=== PATIENT | female | born 1990 | race Caucasian/White ===

== ENCOUNTER → 2016-06-29 | Outpatient (CLI) | payer BC ==
[2016-06-29 10:42] LABS: COMPLETE YES; EOS % 0.6 %; HEMATOCRIT 40.5 % (37-47); IG% 0.1 %; LYMPH % 23.6 %; LYMPH ABS # 1.67 K/uL (1.2-3.4); MEAN CELL VOLUME 92.5 fL (80-100); MEAN CORPUSCULAR HEMOGLOBIN 32.6 pg (25-34); MEAN CORPUSCULAR HGB CONC 35.3 g/dl (32-36); MONO % 6.1 %; NEUT % 69.6 %; PLATELET COUNT 215 K/uL (130-400); RED BLOOD COUNT 4.38 M/uL (4.2-5.4); WHITE BLOOD COUNT 7.09 K/uL (4.8-10.8)
[2016-06-29 10:48] LABS: URINE APPEARANCE CLEAR (CLEAR); URINE BILIRUBIN NEG (NEG); URINE COLOR YELLOW; URINE NITRITE NEG (NEG); URINE PH 7.5 (4.5-7.5); UROBILINOGEN NEG (NEG)
[2016-06-29 10:52] LABS: MANUAL MICROSCOPIC REQUIRED? NO; REVIEW REQ? NO
[2016-07-01 01:46] LABS: CHLAMYDIA TRACH RNA*** NOT DETECTED (NOT DETECTED); GC (NEIS GONORRHOEAE)RNA** NOT DETECTED (NOT DETECTED)
== END | disposition home or self-care (01) ==
LOC: C.LAB1850 09:14
PROVIDERS: ATTEND Obstetrics & Gynecology
DX: Z34.00 Encounter for supervision of normal first pregnancy, unspecified trimester (principal)

== ENCOUNTER → 2016-08-31 | Outpatient (CLI) | payer BC ==
[~2016-08-31] MED LIST: PRENTAB26 PO
[2016-08-31 17:43] LABS: GTGD 50 Grams
[2016-09-04 16:12] LABS: AFP CONCENTRATION 42.1 NG/ML; AFP MULTIPLE OF MEDIAN 1.02; AFPTS GESTATIONAL AGE 17.6 WEEKS; AFPTS INSULIN DEP DIABETIC? NO; AFPTS MATERNAL WT 145 LBS; ALPHA-FETOPROTEIN RACE CAUCASIAN=W; HISTORY OF NTD NO; REPEAT SAMPLE? NO
== END | disposition home or self-care (01) ==
LOC: C.LAB1850 15:25
PROVIDERS: ATTEND Obstetrics & Gynecology
DX: Z34.03 Encounter for supervision of normal first pregnancy, third trimester (principal)

== ENCOUNTER → 2016-11-16 | Outpatient (CLI) | payer BC ==
[2016-11-16 17:45] LABS: HEMATOCRIT 36.2 % (37-47)
[2016-11-16 18:11] LABS: URINE APPEARANCE CLEAR (CLEAR); URINE BILIRUBIN NEG (NEG); URINE COLOR YELLOW; URINE EPITHELIAL CELL AUTO 20-30 /lpf (0-5); URINE NITRITE NEG (NEG); URINE SPECIFIC GRAVITY 1.033 (1.000-1.030); UROBILINOGEN NEG (NEG)
[2016-11-16 18:12] LABS: MANUAL MICROSCOPIC REQUIRED? NO; REVIEW REQ? NO
[2016-11-16 18:18] LABS: GTGD 50 Grams
== END | disposition home or self-care (01) ==
LOC: C.LAB1850 16:27
PROVIDERS: ATTEND Obstetrics & Gynecology
DX: Z34.03 Encounter for supervision of normal first pregnancy, third trimester (principal)

== ENCOUNTER → 2016-11-20 | Outpatient (CLI) | payer BC | END | disposition home or self-care (01) | LOC: C.LAB1850 07:36 | PROVIDERS: ATTEND Obstetrics & Gynecology | DX: O99.810 Abnormal glucose complicating pregnancy (principal) ==

== ENCOUNTER → 2017-01-09 | Outpatient (CLI) | payer BC | END | disposition home or self-care (01) | LOC: C.LABSPEC 17:51 | PROVIDERS: ATTEND Obstetrics & Gynecology | DX: Z34.03 Encounter for supervision of normal first pregnancy, third trimester (principal) ==

== ENCOUNTER 2019-03-20 13:11 | Inpatient (IN) ==
[2019-03-20] MEDS ORDERED: LACTATED RINGER'S 1,000 ML IV PRN (13:35)
[2019-03-20] MEDS ORDERED: OXYTOCIN 30 UNITS/500 ML BAG IV PRN ×2 (13:35→16:19)
--- NOTE | 2019-03-20 13:38 | History & Physical Report ---
Date of Service March 20, 2019 40 weeks second baby admitted with labor she was 5 cm in the office had her membranes stripped and at this time she is now in active labor at 7 cm 100% effaced her has been uncomplicated with the exception of abnormal Pap smears which she will follow-up for after work she is group B strep neck Assessment & Plan (1) Normal labor and delivery: Admission patient does not wish an epidural at this time group B strep History of Present Illness Primary Care Provider: NO PCP Allergies Allergy/AdvReac Type Severity Reaction Status Date / Time Penicillins Allergy Unknown RASH Verified 03/20/19 10:21 Home Medications Home Medications Medication Instructions Recorded Confirmed Type prenat.vits,glo,xma-efrr-qjikd 1 tab PO DAILY 10/29/18 03/20/19 History Patient History Medical History (Updated 03/20/19 @ 13:37 by Taina Prakash MD, FACOG) History of acute sinusitis History of endometriosis History of nasal obstruction History of varicella vaccination Surgical History (Updated 11/02/18 @ 13:40 by Yari Chaparro) S/P laparoscopic surgery excision uterine surface endometriotic tissue S/P LASIK surgery of both eyes S/P wisdom tooth extraction Family History (Updated 11/02/18 @ 13:41 by Yari Chaparro) Sister Diabetes Grandfather (Maternal) Diabetes Hypertension Father Hypertension Social History (Updated 11/02/18 @ 13:41 by Yari Chaparro) marital status: Smoking Status: Never smoker Physical Exam Respiratory: normal respiratory effort, lungs clear to auscultation Cardiovascular: RRR, no murmur, no edema Genitourinary: Manual OB Exam: + cervical dilation 7 cm, + cervical effacement 100% and + station 0 OB Exam Monitor Tracing: + external FHT monitor used Results & Data Vital Signs (Past 12 Hours) Vital Signs Temp Pulse Resp BP 03/20/19 13:19 65 132/62 03/20/19 13:16 97.9 F 18
[2019-03-20 13:53] LABS: Hemoglobin 13.7 g/dL (12.0-16.0); Mean Corpuscular Hemoglobin 33.1 pg (25-34); Mean Corpuscular Volume 96.6 fL (80-100); Mean Platelet Volume 11.6 fL (7.4-10.4); Platelet Count 150 K/uL (130-400); RDW Coefficient of Variation 14.7 % (11.5-14.5); RDW Standard Deviation 52.1 fL (36.4-46.3); Red Blood Count 4.14 M/uL (4.2-5.4); White Blood Count 8.79 K/uL (4.8-10.8)
[2019-03-20 13:54] LABS: Mean Corpuscular Hgb Conc 34.3 g/dL (32-36)
--- NOTE | 2019-03-20 15:57 | Delivery Summary ---
Vaginal Delivery Summary Date of Service March 20, 2019 Spontaneous vaginal delivery patient presented to 9 cm AROM was performed she t hen delivered over the next 4 contractions. Delivering her baby in occiput anterior position mouth and the nares were suctioned and no nuchal cord with no excess force. Vigorous baby. Second-degree tear repaired with 3-0 Vicryl estimated blood loss 300 mL placenta was removed with gentle traction rectal exam negative for defect sponge and instrument counts correct
[2019-03-20] MEDS ORDERED: IBUPROFEN 600 MG TAB PO ONE (16:18)
[2019-03-20] MEDS ORDERED: BENZOCAINE 20% AER SPR 82.5 GM CAN EXT PRN (16:19)
[2019-03-20] MEDS ORDERED: SUPERCREAM 0.870% 15 GM JAR EXT PRN (16:19)
[2019-03-20] MEDS ORDERED: OXYCODONE/ACETAMINOPHEN 5mg/325mg TAB PO PRN (16:19)
[2019-03-20] MEDS ORDERED: DIPHTHERIA/TETANUS/PERTUSSIS 0.5 ML SYR/VIAL IM ONE (16:19)
[2019-03-20] MEDS ORDERED: ACETAMINOPHEN 325 MG TAB PO PRN (16:19)
[2019-03-20] MEDS ORDERED: bisacodyL 10 MG SUPP PR PRN (16:19)
[2019-03-20] MEDS ORDERED: HYDROCORTISONE ACETATE 25 MG SUPP PR PRN (16:19)
[2019-03-20] MEDS: DOCUSATE SODIUM 100 MG CAP PO SCH (20:10)
[2019-03-20] MEDS: IBUPROFEN 600 MG TAB PO PRN (23:17)
[2019-03-21] MEDS: IBUPROFEN 600 MG TAB PO PRN ×3 (03:39→19:23)
--- NOTE | 2019-03-21 06:43 | Obstetrical Progress Note ---
Date of Service March 21, 2019 Assessment & Plan (1) Encounter for care and examination after delivery: - recovering well after stripping of membranes in office yesterday and yesterday afternoon - eating and drinking appropriately - breast feeding - progressing appropriately - continue supportive care Supervising Physician Co-Signing Physician Notes Resident Physician Supervision Note: I interviewed and examined the patient. Discussed with [Chu] and agree with findings and plan as documented in the note. Any exceptions or clarifications are listed here: [None] Documented By: Taina Prakash MD, FACOG Subjective Feeling great this morning. No acute complaints. Review of Systems Constitutional: + fatigue; no fever and no chills Respiratory: no cough and no dyspnea Cardiovascular: no chest pain, no syncope, no edema and no calf pain Gastrointestinal: + cramping; no abdominal pain, no nausea, no vomiting, no constipation and no diarrhea/loose stools Genitourinary: no dysuria and no difficulty urinating Neurologic: no headache(s) Physical Exam Constitutional: well developed and well nourished Respiratory: normal respiratory effort; no respiratory distress, no labored b reathing and no cough Auscultation: no crackles, no rales, no rhonchi and no wheezes Cardiovascular: Rate/Rhythm: regular rate and regular rhythm Heart Sounds: no gallop, no murmur and no cardiac rub Extremities: no pedal edema Gastrointestinal (Abdomen): Inspection/Auscultation: + abdomen distended and normal bowel sounds Percussion/Palpation: abdomen soft; no guarding Musculoskeletal: no tenderness to palpation of calves bilaterally Genitourinary: Uterus small and firm, palpable in midline one finger below level of umbilicus,no tenderness to palpation. Results & Data Vital Signs (Past 12 Hours) Vital Signs Temp Pulse Resp BP Pulse Ox 03/21/19 03:40 36.4 C L 72 16 108/61 99 03/20/19 23:20 36.6 C 74 18 118/73 97 03/20/19 20:10 36.9 C 79 18 126/71 98 03/20/19 Range/Units 13:41 WBC 8.79 (4.8-10.8) K/uL RBC 4.14 L (4.2-5.4) M/uL Hgb 13.7 (12.0-16.0) g/dL Hct 40.0 (37-47) % MCV 96.6 (80-100) fL MCH 33.1 (25-34) pg MCHC 34.3 (32-36) g/dL RDW Std Deviation 52.1 H (36.4-46.3) fL RDW Coeff of Fallon 14.7 H (11.5-14.5) % Plt Count 150 (130-400) K/uL MPV 11.6 H (7.4-10.4) fL PG Care Time/CCT Total # of Minutes Spent Total Time Spent with Patient: Total time spent is greater than 50% in coordin ation of care (as documented) at patient's floor/unit and/or counseling patient: Resident Activity Tracking Resident Involvement: Resident Care Provided Care Provided: OB Delivery
[2019-03-21 07:08] LABS: Hematocrit (blood only) 34.9 % (37-47); Hemoglobin 11.8 g/dL (12.0-16.0); Mean Corpuscular Hemoglobin 32.7 pg (25-34); Mean Corpuscular Hgb Conc 33.8 g/dL (32-36); Mean Corpuscular Volume 96.7 fL (80-100); Mean Platelet Volume 11.8 fL (7.4-10.4); Platelet Count 141 K/uL (130-400); RDW Coefficient of Variation 14.7 % (11.5-14.5); RDW Standard Deviation 51.8 fL (36.4-46.3); Red Blood Count 3.61 M/uL (4.2-5.4); White Blood Count 12.72 K/uL (4.8-10.8)
[2019-03-21] MEDS: DOCUSATE SODIUM 100 MG CAP PO SCH ×2 (08:41→21:39)
[2019-03-21] MEDS: PRENATAL VITAMIN 1 TAB PO SCH (08:41)
[2019-03-21] MEDS ORDERED: NON-FORMULARY MEDICATION (Prenat.Vits,Cal,Min-Iron-Folic 1 TAB) PO SCH (09:00)
[2019-03-21] MEDS ORDERED: bisacodyL 5 MG TABEC PO SCH (20:00)
[2019-03-22] MEDS: IBUPROFEN 600 MG TAB PO PRN ×2 (02:15→08:25)
[2019-03-22 06:58] LABS: Hematocrit (blood only) 34.2 % (37-47); Hemoglobin 11.3 g/dL (12.0-16.0)
--- NOTE | 2019-03-22 07:07 | Obstetrical Progress Note ---
Date of Service March 22, 2019 Assessment & Plan (1) Encounter for care and examination after delivery: s/p on L&D after stripping of membranes in the office - recovering well - eating and drinking appropriately - breast feeding - progressing appropriately toward discharge - continue supportive care Supervising Physician Co-Signing Physician Notes Resident Physician Supervision Note: I was present with Dr. Sage during the history and exam. I discussed the case with the resident and agree with the findings and plan as documented in the note. Any exceptions or clarifications are listed here: PPD#1 doing well, DC home today. Instructions reviewed. Documented By: Lorna Rios, DO Subjective No complaints this AM, doing well and eager to go home. Review of Systems Constitutional: + fatigue; no fever and no chills Respiratory: no cough and no dyspnea Cardiovascular: no chest pain, no syncope, no edema and no calf pain Gastrointestinal: no abdominal pain, no nausea, no vomiting, no cramping, no constipation and no diarrhea/loose stools Genitourinary: no dysuria and no difficulty urinating Neurologic: no headache(s) Physical Exam Constitutional: well developed and well nourished Respiratory: normal respiratory effort; no respiratory distress, no labored breathing and no cough Auscultation: no crackles, no rales, no rhonchi and no wheezes Cardiovascular: Rate/Rhythm: regular rate and regular rhythm Heart Sounds: no gallop, no murmur and no cardiac rub Extremities: no pedal edema Gastrointestinal (Abdomen): Inspection/Auscultation: + abdomen distended and normal bowel sounds Percussion/Palpation: abdomen soft; no guarding Results & Data Vital Signs (Past 12 Hours) Vital Signs Temp Pulse Resp BP 03/22/19 02:30 36.6 C 69 18 117/75 03/22/19 03/21/19 Range/Units 06:15 06:29 WBC 12.72 H (4.8-10.8) K/uL RBC 3.61 L (4.2-5.4) M/uL Hgb 11.3 L 11.8 L (12.0-16.0) g/dL Hct 34.2 L 34.9 L (37-47) % MCV 96.7 (80-100) fL MCH 32.7 (25-34) pg MCHC 33.8 (32-36) g/dL RDW Std Deviation 51.8 H (36.4-46.3) fL RDW Coeff of Fallon 14.7 H (11.5-14.5) % Plt Count 141 (130-400) K/uL MPV 11.8 H (7.4-10.4) fL PG Care Time/CCT Total # of Minutes Spent Total Time Spent with Patient: Total time spent is greater than 50% in coordination of care (as documented) at patient's floor/unit and/or counseling patient: Resident Activity Tracking Resident Involvement: Resident Care Provided Care Provided: OB Delivery
[2019-03-22] MEDS: DOCUSATE SODIUM 100 MG CAP PO SCH (08:23)
[2019-03-22] MEDS: PRENATAL VITAMIN 1 TAB PO SCH (08:23)
== END 2019-03-22 11:45 | disposition home or self-care (01) | DRG 807 ==
LOC: OPB 13:11 → 4S1 13:16 → 4S2 20:12

== ENCOUNTER 2021-09-13 18:17 | Inpatient (IN) ==
--- NOTE | 2021-09-13 19:42 | History & Physical Report ---
Date of Service September 13, 2021 Assessment & Plan (1) Normal labor: Plan: admit for probable labor. Patient notes that she has had rapid deliveries and concerned about going home. given g3, don't feel comfortable doing this. Would be amendable to arom if needed. Desires unmedicated delivery. last delivery was 10# and pushed fo 10 minutes. History of Present Illness Chief Complaint: contractions Primary Care Provider: Sudha Ruiz MD Patient is a 31yowf with iup at 40 0/7 who was seen in the office today for a routine visit. Was 2/100/-2 and had membranes stripped. Started with increased contractions this evening and painful. no lof/vb. +fm. uncomplicated. and Delivery Plans History of Leep 2018- PLAN- PAP at [facility] IOL 09/23/21 COVID test would be 09/21 OB Labs: Blood Type A Positive 08/15/18 Antibody Screen NEGATIVE 08/15/18 Hemoglobin 12.7 g/dL (12.0-16.0) 06/29/21 Hematocrit 38.0 % (37-47) 06/29/21 Mean Corpuscular Volume 97.8 fL (80.0-100.0) 02/01/21 Platelet Count 220 Thousand/uL (140-400) 02/01/21 Rubella IgG Antibody 1.36 Index 02/01/21 Rapid Plasma Reagin NON-REACTIVE (NON-REACTIVE) 02/01/21 Hepatitis B Surface Antigen Neg (Neg) 08/15/18 HIV (1&2) Ab and P24 Ag, 4th Gener NON-REACTIVE (NON-REACTIVE) 02/01/21 Glucose 1 Hour 50 gm Load 130 mg/dl (70-130) 06/29/21 OB Optional Labs: Chlamydia trachomatis RNA NOT DETECTED (NOT DETECTED) 02/01/21 Neisseria gonorrhoeae RNA NOT DETECTED (NOT DETECTED) 02/01/21 Thyroid Stimulating Hormone (TSH) 2.279 uIu/ml (0.300-4.500) 07/22/21 Labs Reviewed: low risk panorama--akh gbs negative. Allergies Allergy/AdvReac Type Severity Reaction Status Date / Time Penicillins Allergy Unknown RASH Verified 09/13/21 09:21 Home Medications Medication Instructions Recorded Confirmed Type prenat.vits,glo,qfw-eqak-qatoo 1 tab PO DAILY 09/13/21 09/13/21 History Patient History Medical History Anemia Health care maintenance HGSIL (high grade squamous intraepithelial lesion) on Pap smear of cervix (2018) History of acute sinusitis History of endometriosis History of nasal obstruction History of varicella vaccination Pelvic pressure in female Skin tag Surgical History H/O LEEP (06/2019) Cin2 neg margins S/P laparoscopic surgery excision uterine surface endometriotic tissue S/P LASIK surgery of both eyes S/P wisdom tooth extraction Family History Sister Diabetes Grandfather (Maternal) Diabetes Hypertension Father Hypertension Aunt Colorectal cancer Denies family history of Ovarian cancer Breast cancer Uterine cancer Social History Smoking Status: Never smoker Second Hand Exposure: No; Hx Alcohol Use: No Hx Substance Use: No Preferred Language: Syriac Communication Ability: Effective Visual Impairment: No Limitations Hearing Ability: Normal Clinical Abstractor Required: No Beliefs That Will Affect Care: None marital status: marital status details: Issa Plasencia (39) [phone] Current Living Situation: Family Current Living Situation Comment: Lives with and 2 children current occupational status: unemployed current occupation: homemaker Other Information That Helps Us Care for You: No Feels Safe at Home: Yes Safety Concerns: Feels Safe At This Time Gender Identity: Female Assistive Devices: None OB History Past Pregnancies Del. Date GA wks Lbr Lgth wt Sex Type del Anes Place Del Prov ? Comment 01/28/17 39 7-15 F Epidural [facility] Dr [place] 03/20/19 40 10lb 0.2oz M No ne [facility] Olinda No [facility] History hx of leep and following up Physical Exam Constitutional: WD/WN, vitals as above Gastrointestinal (Abdomen): soft, gfavid, nt Psychiatric: A+Ox3, euthymic affect Genitourinary: cx--3/100/-1 per nursing toco--q 2-4 min efm--150s with mod variaiblity, accels to 170s, no decels Results & Data ([facility]) Vital Signs (Past 12 Hours) Vital Signs Temp Pulse Resp BP 09/13/21 19:10 36.7 C 20 09/13/21 19:07 36.7 C 85 20 125/63 09/13/21 18:22 36.8 C 75 20 137/69 Coding Level of Care Code None Diagnoses Normal labor O80; Z37.9
[2021-09-13 20:01] LABS: Hematocrit (blood only) 39.5 % (37-47); Hemoglobin 13.4 g/dL (12.0-16.0); Mean Corpuscular Hgb Conc 33.9 g/dL (32-36); Mean Corpuscular Volume 97.3 fL (80-100); Mean Platelet Volume 11.2 fL (7.4-10.4); Platelet Count 144 K/uL (130-400); RDW Standard Deviation 49.5 fL (36.4-46.3); Red Blood Count 4.06 M/uL (4.2-5.4); White Blood Count 11.91 K/uL (4.8-10.8)
--- NOTE | 2021-09-13 20:43 | Labor Progress Brief Note ---
Date of Service September 13, 2021 Subjective breathing through contractions Assessment & Plan (1) Normal labor: Plan: agrees to arom. fetus category one. anticipate . Physical Exam Physical Exam: cx--/-1 arom--clear toco--q2-3min efm--150s with mod variability, accels present, no decels. Results & Data ([facility]) Vital Signs (Past 12 Hours) Vital Signs Temp Pulse Resp BP Pulse Ox 09/13/21 20:37 93 H 99 09/13/21 20:32 84 98 09/13/21 20:27 108 H 98 09/13/21 20:22 94 H 98 09/13/21 20:17 97 H 98 09/13/21 20:12 91 H 100 09/13/21 19:35 18 09/13/21 19:10 36.7 C 20 09/13/21 19:07 36.7 C 85 20 125/63 09/13/21 18:22 36.8 C 75 20 137/69 Coding Level of Care Code None Diagnoses Normal labor O80; Z37.9
[2021-09-13] MEDS: LACTATED RINGER'S 1,000 ML IV PRN ×2 (21:22→22:27)
--- NOTE | 2021-09-13 21:22 | Labor Progress Brief Note ---
Date of Service September 13, 2021 Subjective considering pain management Assessment & Plan (1) Normal labor: Plan: starting to change. can do stadol but may not last long if at all. if going to do epidural need to do it now or will likely miss opportunity. Will go with epidural. Admission and Anticipated Discharge Date Admission Date: September 13, 2021 Physical Exam Physical Exam: cx--5/100/-1 toco--q2-3min efm--150s wtih mod variaibly, small accels, no decles, picking up maternal pulse at times Results & Data ([facility]) Vital Signs (Past 12 Hours) Vital Signs Temp Pulse Resp BP Pulse Ox 09/13/21 21:17 93 H 98 09/13/21 21:12 55 L 98 09/13/21 21:07 77 98 09/13/21 21:02 56 L 98 09/13/21 21:00 20 09/13/21 20:57 75 98 09/13/21 20:52 91 H 99 09/13/21 20:47 93 H 97 09/13/21 20:42 82 99 09/13/21 20:40 36.7 C 09/13/21 20:37 93 H 99 09/13/21 20:32 84 98 09/13/21 20:27 108 H 98 09/13/21 20:22 94 H 98 09/13/21 20:17 97 H 98 09/13/21 20:12 91 H 100 09/13/21 19:35 18 09/13/21 19:10 36.7 C 20 09/13/21 19:07 36.7 C 85 20 125/63 09/13/21 18:22 36.8 C 75 20 137/69 Coding Level of Care Code None Diagnoses Normal labor O80; Z37.9
[2021-09-13] MEDS ORDERED: SODIUM CHLORIDE 0.9% INJ 10 ML VIAL ONE (21:24)
[2021-09-13] MEDS ORDERED: ePHEDrine sulfate 50 MG/ML AMP ONE (21:24)
[2021-09-13] MEDS ORDERED: fentaNYL citrate 100 MCG/2 ML VIAL ONE (21:24)
[2021-09-13] MEDS ORDERED: BUPIVACAINE 0.25% 30 ML VIAL ONE (21:24)
--- NOTE | 2021-09-13 21:24 | Anesthesiology Consultation ---
Date of Service September 13, 2021 Assessment & Plan (1) Encounter for pre-operative examination: Chart Review Chart Review: Acceptable Risk for Labor Epidural History Height/Weight Height: 5 ft 11 in Weight: 92.986 kg Allergies Allergy/AdvReac Type Severity Reaction Status Date / Time Penicillins Allergy Unknown RASH Verified 09/13/21 09:21 Medications Home Medications Medication Instructions Recorded Confirmed Last Taken prenat.vits,glo,ycx-rxnw-bmrdx 1 tab PO DAILY 09/13/21 09/13/21 09/13/21 08:00 Active Medications Generic Name Dose Route Start Last Admin Trade Name Freq PRN Reason Stop Dose Admin Lactated Ringer's 1,000 mls @ 125 mls/hr 09/13/21 19:22 09/13/21 21:22 Lr IV 09/15/21 19:21 999 mls/hr .Q8H PRN Administration L&D Protocol Protocol Past Medical History Medical History Anemia Health care maintenance HGSIL (high grade squamous intraepithelial lesion) on Pap smear of cervix (2018) History of acute sinusitis History of endometriosis History of nasal obstruction History of varicella vaccination Pelvic pressure in female Skin tag Spontaneous vaginal delivery 01/28/17 [facility] 03/20/19 [facility] Past Family History Family History Sister Diabetes Grandfather (Maternal) Diabetes Hypertension Father Hypertension Aunt Colorectal cancer Denies family history of Ovarian cancer Breast cancer Uterine cancer Past Surgical History Surgical History H/O LEEP (06/2019) Cin2 neg margins S/P laparoscopic surgery excision uterine surface endometriotic tissue S/P LASIK surgery of both eyes S/P wisdom tooth extraction Social History Smoking Status: Never smoker Hx Alcohol Use: No Hx Substance Use: No substance use type: does not use Physical Exam Vital Signs Last Vital Signs Temp 36.7 C 09/13/21 20:40 Pulse 68 09/13/21 21:22 Resp 20 09/13/21 21:00 BP 125/63 09/13/21 19:07 Pulse Ox 98 09/13/21 21:17 Testing Laboratory Results 09/13/21 19:41
[2021-09-13] MEDS ORDERED: fentaNYL 2MCG/ML ROPIVACAINE 1.25MG/ML 100 ML BAG EPI ONE (21:25)
[2021-09-13] MEDS ORDERED: ePHEDrine sulfate 50 MG/ML AMP IV PRN (22:00)
[2021-09-13] MEDS ORDERED: ONDANSETRON INJ 2 MG/ML 2 ML VIAL IV PRN (22:00)
[2021-09-13] MEDS ORDERED: NALOXONE HCL 0.4 MG/1 ML VIAL/CARP IV PRN (22:00)
[2021-09-13] MEDS ORDERED: NALOXONE HCL 1 MG in SODIUM CHLORIDE 0.9% 1000ML 1,000 ML IV PRN (22:00)
[2021-09-13] MEDS ORDERED: fentaNYL 2MCG/ML ROPIVACAINE 1.25MG/ML 100 ML BAG EPI PRN (22:00)
[2021-09-13] MEDS: OXYTOCIN 30 UNITS/500 ML BAG IV PRN (23:46)
[2021-09-13] MEDS ORDERED: HYDROCORTISONE ACETATE 25 MG SUPP PR PRN (23:57)
[2021-09-13] MEDS ORDERED: ACETAMINOPHEN 325 MG TAB PO PRN (23:57)
[2021-09-13] MEDS ORDERED: DIPHTHERIA/TETANUS/PERTUSSIS 0.5 ML SYR/VIAL IM ONE (23:57)
[2021-09-13] MEDS ORDERED: oxyCODONE/ACETAMINOPHEN 5mg/325mg TAB PO PRN (23:57)
[2021-09-13] MEDS ORDERED: METHYLERGONOVINE MALEATE 0.2 MG/ML AMP IM ONE (23:57)
[2021-09-13] MEDS ORDERED: BENZOCAINE 20% AER SPR 82.5 GM CAN EXT PRN (23:57)
[2021-09-13] MEDS ORDERED: OXYTOCIN 30 UNITS/500 ML BAG IV PRN (23:57)
--- NOTE | 2021-09-14 00:03 | Delivery Summary ---
Vaginal Delivery Summary Date of Service September 14, 2021 Vaginal Delivery Summary and 2nd Degree LAC Pre-operative Diagnosis: at 40 weeks active labor Post-operative Diagnosis: same Procedure: arom epidural second degree laceration and repair EBL: 400cc Anesthesia: epidural Procedure: The patient presented with active labor. She was slow to progress so arom done for clear fluid. She then underwent epidural. She progressed to c/c/+4. The patient pushed for one contractions to deliver a viable male in doa position. The infant was then delivered without difficulty. The baby was vigorous. The nose and mouth were bulb suctioned and the was placed in the maternal abdomen for drying and attention. Cord was clamped and cut at one minute of life. Cord blood and segment obtained. Placenta delivered spontaneous, intact with a three vessel cord. Cervix/sulci/rectum were intact. A second degree perineal laceration was repaired in the normal standard fashion. Hemostasis obtained with dilute pitocin and fundal massage. Apgars were 8/9. Mother and baby doing well at the end of the delivery. [facility] Vaginal Delivery Charge Delivery Type Details: and 2nd Degree LAC
[2021-09-14] MEDS: OXYTOCIN 30 UNITS/500 ML BAG IV PRN (00:19)
[2021-09-14] MEDS: IBUPROFEN 600 MG TAB PO PRN ×4 (04:23→17:11)
[2021-09-14 06:52] LABS: Hemoglobin 12.5 g/dL (12.0-16.0)
--- NOTE | 2021-09-14 07:26 | Obstetrical Progress Note ---
Date of Service September 14, 2021 Assessment & Plan (1) Encounter for care and examination after delivery: Plan: 31yo PPD 1 s/p at 40 weeks. Complicated with 2nd degree laceration. -Continue routine care -Vitals reviewed- mildly tachycardic otherwise HDS, afebrile -GBS neg -Encourage ambulation, regular diet -Pain control with ibuprofen, acetaminophen PRN -Encourage -Hgb 12.5, stable -f/u in 6 weeks with OB Admission and Anticipated Discharge Date Admission Date: September 13, 2021 Supervising Physician Co-Signing Physician Notes Resident Physician Supervision Note: I interviewed and examined the patient. Discussed with Dr. Sage and agree with findings and plan as documented in the note. Any exceptions or clarifications are listed here: Doing well. routine care. Documented By: Apoorva Keys MD, FACOG Subjective Ambulation: yes Voiding: yes Passing Gas: no BM: no Diet Tolerance: regular, denies N/V Lochia: small Feeding Type: Current Pain Level(1-10): 2 Review of Systems Review of Systems: Denies fevers/chills. Denies dyspnea, cough. Denies chest pain. Denies dysuria. Denies headache. Physical Exam Physical Exam: General: Alert, oriented, no acute distress Cardiac: Regular rate and rhythm, normal S1, S2. No murmurs appreciated. Respiratory: Clear to auscultation b/l with good air flow entry, symmetric chest rise and fall. No wheezes or crackles. No increased work of breathing or accessory muscle use Abdomen: Soft, mild fundal tenderness, nondistended. Fundus firm and palpable at 1 cm below umbilicus. No guarding or rebound. Skin: No rashes or lesions Extremities: Warm, dry, well-perfused with capillary refill <2s b/l. No lower extremity edema, erythema or swelling. Negative Snow's sign b/l. Results & Data ([facility]) Vital Signs (Past 12 Hours) Vital Signs Temp Pulse Pulse Resp BP BP Pulse Ox 09/14/21 02:30 36.6 C 108 H 14 126/70 09/14/21 01:55 18 09/14/21 01:40 106 H 130/67 09/14/21 01:25 100 H 18 127/58 L 09/14/21 01:10 98 H 132/61 09/14/21 00:55 93 H 18 136/71 09/14/21 00:40 93 H 18 140/77 09/14/21 00:25 99 H 18 137/63 09/14/21 00:11 86 141/66 H 09/14/21 00:10 99 H 18 137/63 09/13/21 23:56 93 H 119/58 L 09/13/21 23:55 36.4 C L 18 09/13/21 23:50 90 132/64 09/13/21 23:47 92 H 98 09/13/21 23:42 101 H 99 09/13/21 23:37 90 100 09/13/21 23:36 85 133/75 09/13/21 23:32 96 H 100 09/13/21 23:30 18 09/13/21 23:27 99 H 98 09/13/21 23:22 86 100 09/13/21 23:20 93 H 119/58 L 09/13/21 23:17 96 H 98 09/13/21 23:12 91 H 98 09/13/21 23:07 96 H 111/56 L 100 09/13/21 23:02 92 H 97 09/13/21 23:00 18 09/13/21 22:57 99 H 99 09/13/21 22:52 88 99 09/13/21 22:50 99 H 106/58 L 09/13/21 22:47 91 H 99 09/13/21 22:42 86 100 09/13/21 22:37 99 H 100 09/13/21 22:35 92 H 109/60 09/13/21 22:32 98 H 100 09/13/21 22:30 18 09/13/21 22:27 93 H 100 09/13/21 22:22 88 100 09/13/21 22:21 92 H 97/51 L 09/13/21 22:17 94 H 100 09/13/21 22:12 97 H 100 09/13/21 22:07 97 H 100 09/13/21 22:05 18 09/13/21 22:04 96 H 107/55 L 09/13/21 22:02 93 H 104/54 L 100 09/13/21 22:00 36.5 C 78 106/56 L 09/13/21 21:58 87 99/55 L 09/13/21 21:57 85 100 09/13/21 21:56 85 101/55 L 09/13/21 21:53 92 H 112/50 L 09/13/21 21:52 96 H 99 09/13/21 21:50 93 H 119/66 09/13/21 21:48 73 123/77 09/13/21 21:47 89 98 09/13/21 21:42 96 H 98 09/13/21 21:37 90 99 09/13/21 21:33 93 H 91 09/13/21 21:32 92 H 120/67 100 09/13/21 21:30 20 09/13/21 21:27 61 100 09/13/21 21:22 68 100 09/13/21 21:17 93 H 98 09/13/21 21:12 55 L 98 09/13/21 21:07 77 98 09/13/21 21:02 56 L 98 09/13/21 21:00 20 09/13/21 20:57 75 98 09/13/21 20:52 91 H 99 09/13/21 20:47 93 H 97 09/13/21 20:42 82 99 09/13/21 20:40 36.7 C 09/13/21 20:37 93 H 99 09/13/21 20:32 84 98 09/13/21 20:27 108 H 98 09/13/21 20:22 94 H 98 09/13/21 20:17 97 H 98 09/13/21 20:12 91 H 100 09/13/21 19:35 18 Resident Activity Tracking Resident Involvement: Resident Care Provided Care Provided: OB Delivery
[2021-09-14] MEDS: DOCUSATE SODIUM 100 MG CAP PO SCH ×2 (08:42→21:17)
[2021-09-14] MEDS: PRENATAL VITAMIN 1 TAB PO SCH (08:43)
--- NOTE | 2021-09-14 09:29 | Anesthesia Procedure Note ---
Date of Service September 14, 2021 Anesthesia Post Epidural Note Vital Signs Vital Signs: Temp Pulse Resp BP Pulse Ox 97.9 F 108 H 14 126/70 98 09/14/21 02:30 09/14/21 02:30 09/14/21 02:30 09/14/21 02:30 09/13/21 23:47 Notes Mental Status: alert / awake / arousable and participated in evaluation Nausea / Vomiting: adequately controlled Pain: adequately controlled Airway Patency, RR, SpO2: stable & adequate BP & HR: stable & adequate Hydration State: stable & adequate Neuraxial Anesthesia: was administered and sensory block resolved Anesthetic Complications: no major complications apparent and Pt Satisfied with anesthetic care Epidural: Removed without complications and With tip intact
[2021-09-14] MEDS ORDERED: bisacodyL 5 MG TABEC PO SCH (20:00)
[2021-09-15] MEDS ORDERED: bisacodyL 10 MG SUPP PR PRN
--- NOTE | 2021-09-15 07:16 | Obstetrical Progress Note ---
Date of Service September 15, 2021 Assessment & Plan (1) Encounter for care and examination after delivery: PPD#2, doing well and ready for D/C home, instructions reviewed. Subjective Ambulation: ambulating normally Voiding: no voiding problems Passing Gas:: Yes Diet Tolerance:: regular diet Lochia:: Small Feeding Type:: breast feeding Physical Exam Constitutional WD/WN, vitals as above Eyes PERRL, conjunctivae normal, anicteric sclerae Neck normal visual inspection Respiratory normal respiratory effort and able to speak in complete sentences; no respiratory distress and no labored breathing Cardiovascular Rate/Rhythm: regular rate and regular rhythm Extremities: no edema Chest (Breasts) Chest: normal inspection of chest Gastrointestinal (Abdomen) Inspection/Auscultation: abdomen normal to inspection Soft, postgravid Psychiatric A+Ox3, euthymic affect Genitourinary OB Exam Abdomen: + fundal height Fundus: + firm and + relation to umbilicus (fundus just below umbilicus); not tender Results & Data ([facility]) Vital Signs (Past 12 Hours) Vital Signs Temp Pulse Resp BP Pulse Ox 09/14/21 23:50 97.5 F L 77 18 118/74 97
[2021-09-15] MEDS: IBUPROFEN 600 MG TAB PO PRN (07:43)
[2021-09-15] MEDS: PRENATAL VITAMIN 1 TAB PO SCH (07:43)
[2021-09-15] MEDS: DOCUSATE SODIUM 100 MG CAP PO SCH (07:43)
== END 2021-09-15 10:10 | disposition home or self-care (01) | DRG 807 ==
LOC: OPB 18:17 → 4S1 18:19 → 4E2 09-14 02:10